=== PATIENT | male | born 1975 | race Caucasian/White ===

== ENCOUNTER 2025-10-10 00:20 | Emergency (ER) | payer SELFPAY ==
[2025-10-10 00:27] VITALS: BP 141/86
--- NOTE | 2025-10-10 03:44 | ED.GENMED ---
History of Present Illness
General
Chief Complaint: Head Injury
Source: patient and ambulance crew
Exam Limitations: none
Time Seen by Provider: 10/10/25 00:44
Nursing documentation reviewed up to this point in time: agreed with
History of Present Illness
History of Present Illness:
Note:
CHIEF COMPLAINT(S)
Head injury with a laceration on the right orthodox.
HISTORY OF PRESENT ILLNESS
The patient is a 50-year-old male who presented to the emergency department after being found at a bar with blood noted on his right orthodox. The patient reports having visited 'five bars' earlier this evening and is uncertain about the cause of his
head injury. 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 The patient denies any other injuries and reports no current headache or pain. He is not on any anticoagulant medication.
He arrived at the facility via ambulance and was placed in a cervical collar during transport. There is an abrasion noted on his right orthodox.
PAST MEDICAL AND SURIGICAL HISTORY
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
PHYSICAL EXAM
General: Alert, no acute distress.
Skin: Warm, dry. Abrasion noted on the right orthodox.
Head: Normocephalic, atraumatic apart from right orthodox abrasion.
Neck: Supple, trachea midline.
Eye Ears, nose, mouth and throat: Oral mucosa moist.
Cardiovascular: Normal peripheral perfusion, No edema.
Respiratory: Respirations are non-labored.
Gastrointestinal : Abdomen nondistended.
Back: Normal range of motion, Normal alignment.
Musculoskeletal: Normal range of motion, normal strength.
Neurological: Alert and oriented to person, place, time, and situation, No focal neurological deficit observed.
Psychiatric: Cooperative, appropriate mood & affect.
PLAN
Further diagnostic imaging of the head to rule out any intracranial injury, given the patients history of trauma and current head abrasion.
DIFFERENTIAL DIAGNOSIS
The Differential Diagnosis includes, in no particular order, and is not limited to:
1. Laceration of the right orthodox
2. Subdural hematoma
3. Epidural hematoma
4. Concussion
5. Skull fracture
6. Orbital fracture
7. Alcohol intoxication-related injury
8. Hemorrhagic contusion
9. Intracranial hemorrhage
10. Soft tissue contusion
Disposition:
SUMMARY OF ENCOUNTER
The patient, a 50-year-old male with a history of being a former boxer, presented to the emergency department with a head injury sustained after a period of alcohol consumption. The injury was unwitnessed. CT scans of his head and cervical spine
returned normal results. However, a CT of the facial bones showed acute fractures of the right orbital floor and lateral wall without extraocular muscle entrapment, acute fractures of the anterior lateral and medial arguello of the right maxillary
sinus, moderate right maxillary hemosingus, moderate left maxillary mucosal thickening, and an old medial left orbital wall fracture. The patient expressed a desire not to stay in the hospital and is to follow up on his own. Augmentin
(amoxicillin/clavulanate) treatment is to be initiated. The patient will be discharged home.
DISPOSITION
Discharge.
PLAN
The plan is for the patient to follow up on his own for his facial fractures and to start treatment with Augmentin.
INDEPENDENT REVIEW OF LABS AND INTERPRETATION OF TESTS
- My independent interpretation of the CT of the head and cervical spine is normal.
- My independent interpretation of the CT of the facial bones indicates acute fractures of the right orbital floor and lateral wall without extraocular muscle entrapment, acute fractures of the anterior lateral and medial arguello of the right
maxillary sinus, moderate right maxillary hemosingus, moderate left maxillary mucosal thickening, and a chronic medial left orbital wall fracture.
MEDICATION RECONCILIATION
Prescription medication was prescribed: Augmentin (amoxicillin/clavulanate).
MEDICAL DECISION MAKING
- Number and Complexity of Problems Addressed: Chronic conditions affecting care: History of multiple orbital fractures from previous boxing.
DDx includes:
Laceration of the right orthodox
Subdural hematoma
Epidural hematoma
Concussion
Skull fracture
Orbital fracture
Alcohol intoxication-related injury
Hemorrhagic contusion
Intracranial hemorrhage
Soft tissue contusion
- Data:
Category 1
- My independent interpretation of CT of the head and cervical spine is normal.
- My independent interpretation of CT of the facial bones shows multiple acute fractures.
Category 3
- Attempted discussion of management with oral maxillofacial surgery; unable to make contact during nighttime hours.
-Risk:
Consideration of Admission/Observation: Escalation of care including admission/observation was considered given the complexity and risk of the patients presenting complaint, exam findings, and their underlying comorbidities. However, ultimately I
feel the patient is safe for outpatient management with close follow-up. Reasoning: Work-up reassuring, does not reveal any acute life/organ-threatening processes, the patients symptoms well controlled upon reevaluation, reexamination is reassuring,
vitals are stable, patient agreeable with discharge, reliable for follow-up.
DIAGNOSIS
Orbital floor and lateral wall fractures, acute, right (S02.83XA)
Maxillary sinus fracture, acute, right (S02.402A)
Right maxillary hemosingus, moderate (not specified by ICD-10)
Left maxillary mucosal thickening, moderate, chronic (not specified by ICD-10)
Chronic medial left orbital wall fracture (S02.402A)
Alcohol intoxication, unspecified (F10.929)
Past History
Past History
ED Past Medical History: None
ED Past Surgical History: None
Social History
Tobacco: Non-smoker
Alcohol: None
Drug: None
Living: with family
Phy Exam
Physical Exam
Physical Exam:
.
Course
Orders/Labs/Results
Orders:
Orders
10/10/25 00:44
CT Cervical Spine W/o Iv Contr Urgent
Comment:
Reason For Exam: intox, head injury
CT Head W/o Iv Contrast Urgent
Comment:
Reason For Exam: head injury, intox
CT Orbits W/o Iv Contrast Urgent
Comment:
Reason For Exam: head injury, intox, lac to orbit
10/10/25 02:[address] Facial Bones W/o Iv Contras Urgent
Comment:
Reason For Exam: known orbit fx, requested further imaging
10/10/25 04:24
Amoxicillin 875 mg/Clav 125 mg [Augmentin 875 mg/125 mg] 1 tablet PO NOW STA
Vital Signs
Initial and Last Documented VS:
Initial Vital Signs
Temp Pulse Resp BP Pulse Ox
97.6 F 104 20 141/86 97
10/10/25 00:27 10/10/25 00:27 10/10/25 00:27 10/10/25 00:27 10/10/25 00:27
Last Documented Vital Signs
Temp Pulse Resp BP Pulse Ox
97.6 F 104 18 141/86 97
10/10/25 00:27 10/10/25 00:27 10/10/25 04:00 10/10/25 00:27 10/10/25 03:46
*Radiology
Radiology exam reviewed: radiology read reviewed
*Pulse Oximetry
SaO2: 97
Oxygen Mode of Delivery: Room air
Patient hypoxic: no
*Critical Care Note
Total Time (30-74mins, 75-104mins- exclusive of procedures): Not Applicable
Update Note
Update Note:
NAME: SHAN CARDONA
DATE OF EXAM: 10/10/2025
Patient No: [id number]
Physician: SHASHA
Date of : 1975
Past Medical History (entered by Technologist):
Reason For Exam (entered by Technologist):
Other Notes (entered by Technologist): requested by vision to correlate images with earlier orbit and cervical spine ct that was reconstructed to include rest of face
Additional Information (per Vision Radiologist):
Comparison from earlier today
CT maxillofacial without contrast
IMPRESSION:
Acute right orbital floor and lateral wall fractures. No extraocular muscle entrapment.
Acute fractures of the anterior, lateral, and medial arguello of the right maxillary sinus. Moderate right maxillary hemo-sinus.
Moderate left maxillary mucosal thickening. Chronic medial left orbital wall fracture.
Case finalized on 10/10/25 03:37 EDT
Nik Golden M.D.
This report has been electronically signed and verified by the Radiologist whose name is printed above.
ED Attending Note
-
Portions of this chart may have been created with voice recognition software.� Occasional wrong word or��sound alike� substitutions may have occurred due to the inherent limitations of voice recognition software.
Discharge Plan
Departure
Patient Disposition: Home (Routine Discharge)
Date of Disposition: 10/10/25
Time of Disposition: 06:43
Patient with high blood pressure during this ER visit?: Yes
Condition: Good
Discharge Problem:
Fracture of orbital floor, Fracture of lateral wall of left orbit, Fracture of maxillary sinus, Head injury
Instructions: Head Injury in Adults (DC), Facial fractures, BLOOD PRESSURE, Wound Care (DC)
Prescriptions:
New
amoxicillin-pot clavulanate 875-125 mg tablet
1 tab PO BID Qty: 20 0RF
Referrals:
Gokul Carrillo MD, DDS [Active, Oral Surgery]
UNKNOWN - PT NOT,INTERVIEWE [Family Provider]
Activity Restrictions/Additional Instructions:
Please take your Augmentin antibiotic as discussed
Thank You for choosing [facility].
It was a pleasure meeting you and taking part in your care. We hope for your continued healing and wellness.
Please read discharge instructions in their entirety. However, they are for general education and may not describe your exact diagnosis at discharge. Information on your ER visit and medical conditions were discussed with you along with appropriate
follow up information...
If indicated, please take your medications as instructed and indicated on discharge paperwork.
Please schedule a follow up appointment as directed. Call to schedule an appointment
Please return to the emergency department with ANY change in, persisting, or worsening of symptoms. If any of your symptoms do not improve, or persist, or become more severe within 6-12 hours, please return to the emergency department for further
care.
Please return to the emergency department if you develop a headache, neck pain/stiffness, fever greater than 100.4F, chest pain, shortness of breath, persistent nausea, vomiting, slurred speech, difficulty walking, numbness/tingling, weakness, signs
of infection or any other symptoms that are worrisome to you.
If you have any questions or concerns please do not hesitate to call the Hospital at .
Interventions
Interventions:
*General Assessment Last Done: 10/10/25 04:05
*Neglect/Abuse Screening Last Done: 10/10/25 00:27
*ED COVID-19 Vaccine History Last Done: 10/10/25 00:27
*ED Influenza Vaccine History Last Done: 10/10/25 00:27
[facility] Fall Risk Assessment Tool Last Done: 10/10/25 04:05
ED- Neurological Assessment Last Done: 10/10/25 04:05
ED-Skin Assessment Last Done: 10/10/25 04:08
Discharge Date and Time
Print Language: LATVIAN
[2025-10-10] MEDS: AUGMENTIN 875 MG/125 MG 1 TABLET PO (05:13)
== END 2025-10-10 07:06 | disposition home or self-care (01) ==
LOC: EMR 00:20
PROVIDERS: EMERGENCY PHYSICIAN Student in an Organized Health Care Education/Training Program
DX: S02.31XA Fracture of orbital floor, right side, initial encounter for closed fracture (principal); S02.842A Fracture of lateral orbital wall, left side, initial encounter for closed fracture; S02.40CA Maxillary fracture, right side, initial encounter for closed fracture; S09.90XA Unspecified injury of head, initial encounter; W19.XXXA Unspecified fall, initial encounter; F10.129 Alcohol abuse with intoxication, unspecified
CPT/HCPCS: 99284; 70450; 70480; 70486; 72125